=== PATIENT | female | born 1955 | race Caucasian/White ===

== ENCOUNTER 2019-10-10 19:31 | Emergency (ER) | payer OTHER ==
[~2019-10-10] VITALS: Ht 162.6 cm; Wt 77.1 kg
[2019-10-10 19:57] LABS: ABSOLUTE NEUTROPHILS 7.3 thou/uL (1.4-8.2); BASOPHILS 0.5 % (0.0-2.0); EOSINOPHILS 1.3 % (0.0-3.0); HEMATOCRIT 32.5 % (37.0-47.0); HEMOGLOBIN 11.1 gm/dL (12.0-15.0); LYMPHOCYTES 14.1 % (24.0-44.0); MCH 30.6 pg (26.0-34.0); MCHC 34.1 g/dL (28.0-37.0); MCV 89.7 fL (80.0-100.0); MONOCYTES 9.4 % (1.0-8.0); PLATELET COUNT 232 thou/uL (150-400); POLYS 74.7 % (36.0-66.0); RBC 3.63 mil/uL (4.20-5.00); RDW 14.8 % (10.5-14.5); WBC 9.8 thou/uL (4.0-11.0)
[2019-10-10] MEDS ORDERED: CARVEDILOL25 MG PO (19:58)
[2019-10-10] MEDS ORDERED: AMLODIPINE BESY10 MG PO (19:59)
[2019-10-10] MEDS ORDERED: COZAAR 25 MG TA25 M2 PO (20:00)
[2019-10-10] MEDS ORDERED: LEXAPRO 10 MG T10 M1 PO (20:00)
[2019-10-10] MEDS ORDERED: PAIN RELIEF325 MG PO (20:01)
[2019-10-10] MEDS ORDERED: ACTOS 30 MG TAB30 M1 PO (20:01)
[2019-10-10] MEDS ORDERED: MINTOX PLUS TA1 EACH PO (20:02)
[2019-10-10] MEDS ORDERED: BISACODYL10 MG RECTAL (20:03)
[2019-10-10] MEDS ORDERED: SENNA PLUS TAB1 EACH PO (20:03)
[2019-10-10] MEDS ORDERED: B-121000 MC2 PO (20:04)
[2019-10-10] MEDS ORDERED: FUROSEMIDE 40 M40 MG PO (20:04)
[2019-10-10 20:05] LABS: CALCIUM 8.9 mg/dL (8.5-10.1); CREATININE 2.9 mg/dL (0.6-1.0); POTASSIUM 5.9 mmol/L (3.5-5.1)
[2019-10-10] MEDS ORDERED: NOVOLOG100 UNIT/M SUBQ (20:06)
[2019-10-10] MEDS ORDERED: LOTRIMIN AF90 GM TOP (20:07)
[2019-10-10 23:21] VITALS: BP 145/68
--- NOTE | 2019-10-11 07:53 | EKG ---
[facility] [place] [address] ELECTROCARDIOGRAM REPORT Name: MCKENZIE BURDICK [id number] Admission: 10/10/19 Attend Phys: Discharge: 10/10/19 Date of : 57 Report #: [id number] THIS REPORT FOR: cc: SHAHIDA Farah family physician/PCP SHAHIDA Farah family physician/PCP Chino Johnson MD [facility] THIS REPORT FOR: //name// [facility] ED Test Date: 2019-10-10 Test Time: 19:37:49 Pat Name: MCKENZIE BURDICK Department: Room: Gender: Content Strategist: [facility] : 1955 Requested By: Ar Carson Order Number: [id number] MD: Chino Johnson Measurements Intervals [place] Rate: 82 P: 104 LA: 270 QRS: -56 QRSD: 177 T: 125 QT: 414 QTc: 484 Interpretive Statements Atrial-ventricular dual-paced complexes No further analysis attempted due to paced rhythm Baseline wander in lead(s) V3 No previous ECG available for comparison Electronically Signed On 10-11-2019 7:53:00 CDT by Chino Johnson [email or web address] <ELECTRONICALLY SIGNED> By: Chino Johnson MD, [facility] 10/11/19 0753 36 36 Chino Johnson MD, [facility] /EPI
== END 2019-10-10 23:22 | disposition home or self-care (01) ==
LOC: ER 19:31
PROVIDERS: Emergency Medicine
DX: E87.5 Hyperkalemia (principal); E78.5 Hyperlipidemia, unspecified; E11.22 Type 2 diabetes mellitus with diabetic chronic kidney disease; I12.9 Hypertensive chronic kidney disease with stage 1 through stage 4 chronic kidney disease, or unspecified chronic kidney disease; N18.9 Chronic kidney disease, unspecified; E11.42 Type 2 diabetes mellitus with diabetic polyneuropathy; Z95.0 Presence of cardiac pacemaker; Z79.899 Other long term (current) drug therapy; Z79.4 Long term (current) use of insulin; Z88.8 Allergy status to other drugs, medicaments and biological substances